=== PATIENT | male | born 1950 | race Caucasian/White ===

== ENCOUNTER 2021-05-02 12:28 | Observation (INO) ==
[2021-05-02] MEDS ORDERED: NS 1,000 ML IV 1,000 ML IV ONE (13:13)
[2021-05-02] MEDS ORDERED: NS 1,000 ML IV 1,000 ML ONE (13:14)
[2021-05-02 13:21] LABS: BASOPHILS % (AUTO) 0.2 % (0.2-1.0); EOSINOPHILS % (AUTO) 0.4 % (0.9-2.9); HEMATOCRIT 48.4 % (42.0-54.0); LYMPHOCYTES # (AUTO) 1.1 X10^3/uL (1.3-2.9); LYMPHOCYTES % (AUTO) 8.6 % (21.0-51.0); MEAN CORPUSCULAR HEMOGLOBIN 31.7 pg (27.0-34.0); MEAN CORPUSCULAR HGB CONC 35.1 g/dL (33.0-35.0); MEAN CORPUSCULAR VOLUME 90.5 fL (80.0-100.0); MEAN PLATELET VOLUME 8.2 fL (7.4-11.0); MONOCYTES # (AUTO) 0.5 x10^3/uL (0.3-0.8); MONOCYTES % (AUTO) 4.3 % (0.0-13.0); NEUTROPHILS # (AUTO) 10.6 x10^3/uL (2.2-4.8); NEUTROPHILS % (AUTO) 86.5 % (42.0-75.0); PLATELET COUNT 281 X10^3/uL (150.0-450.0); RED BLOOD COUNT 5.35 X10^6/uL (4.7-6.0); RED CELL DISTRIBUTION WIDTH 13.4 % (11.6-16.5); WHITE BLOOD COUNT 12.3 X10^3/uL (3.6-10.0)
--- NOTE | 2021-05-02 13:27 | DR.EXTPAIN ---
HPI Time seen Time Seen by Provider: 05/02/21 12:50 PCP Primary Care Physician: CLAUDIA HPI Comment HPI Comment: PATIENT IS 70YR OLD MALE IN ER WITH RECTAL BLEEDING THIS AM AND SYNCOPAL EPISODE WHILE IN THE TOILET. BP IS LOW IN ER. CURRENTLY ON CIPRO AND FLAGYL FOR DIVERTICULITIS. HAVE GENERALIZED HIVES THAT IS RESOLVING. NO INCREASING ABDOMINAL PAIN SLIGHT RECTAL PAIN DISCOMFORT. Complaint/Symptoms Chief Complaint Doctor Comments: RECTAL BLEEDING AND SYNCOPAL EPISODE. Chief Complaint:: PATIENT C/O RECTAL BLEEDING THIS MORNING ASSOICIATED WITH SYNCOPAL EPISODE WHILE ON THE TOLIET. PATIENT STATES HE HAS BEEN TAKING MEDICATION FOR A DIVERTICULITIS FLAIR UP. PATIENT ALSO IS NOTED TO BE BROKE OUT IN HIVES D/T THE MEDICATIONS COVID-19 Coronavirus risk:travel/contact w/high risk person: No Has patient experienced Coronavirus symptoms: No Nurses notes reviewed Nurses Notes Review: Yes Source History Provided: Patient Mode of arrival Mode of Arrival: Wheelchair Timing Onset of Chief Complaint: 05/02/21 Context History of: None Associated signs and symptoms Associated Signs and Symptoms: Pain, Abdominal Pain and Bleeding PMH PMH Past Medical History: Yes Past Medical History: Dyslipidemia and Hypertension Past Medical History Comment: DIVERTICULITIS, DEFECTIVE HEART VALVE (WITH REPAIR) Past Surgical History: Yes Surgical History: CABG/Valve Surgery and Ortho Surgery Past Surgical History Comment: BIATERAL SHOULDER Family History History of Family Medical Conditions: No Social History Does any household member use tobacco: No Alcohol Use: Rarely Do you use any recreational Drugs:: No Lives With: Family Lives Where: Home Travel Risk Coronavirus risk:travel/contact w/high risk person: No Has patient experienced Coronavirus symptoms: No Infectious screening In the last 2 months have you had wt loss of >10#?: NO Have you had fever, night sweats or hemotysis?: No Have you traveled outside the country in the last 6 months?: No Isolation: Standard ROS Review of Systems Constitutional: See HPI, Weakness and Fatigue; negative Fever Eyes: No Symptoms Reported and See HPI ENTM: No Symptoms Reported and See HPI; negative Nose Discharge and Nose Congestion Respiratoy: No Symptoms Reported and See HPI; negative Moist Cough, Short of Breath and Wheezing Cardiovascular: See HPI, Syncope and Other (BP LOW IN ER.); negative Chest Pain Gastrointestinal/Abdominal: No Symptoms Reported, See HPI and Abdominal Pain; negative Diarrhea and Vomiting Genitourinary: No Symptoms Reported, See HPI, Pain and Bleeding (RECTAL BLEEDING.) Neurological: See HPI and Weakness; negative Headache and Dizziness Musculoskeletal: No Symptoms Reported and See HPI; negative Back Pain and Chest wall Integumentary: See HPI, Rash and Other (GENERALIZED HIVES DUE TO MEDICATION.); negative Change in Color and Juandice Hematologic/Lymphatic: See HPI and Easy Bruising Endocrine: No Symptoms Reported; negative Increased Thirst and Increased Urine Psychiatric: No Symptoms Reported and See HPI All Other Systems: Reviewed and Negative PE Vital Signs Vitals: Temperature 98.2 F Pulse Rate 80 Respiratory Rate 22 Blood Pressure 112/80 O2 Sat by Pulse Oximetry 97 General Limitations: No Limitations General Appearance: Alert and In No Apparent Distress Head Head Exam: Normal Inspection Eyes Eye exam: Normal Appearance; negative Scleral Icterus and Conjunctival Injection ENT ENT Exam: Normal Exam, Normal Oropharynx, Normal External Ear Exam and TM's Normal Bilaterally Neck Neck Exam: Normal Inspection and Trachea Midline; negative Tenderness Chest Chest Inspection: Normal Inspection and Symmetric Chest Wall Rise; negative Tenderness Respiratory Respiratory Exam: Normal Lung Sounds Bilat; negative Accessory Muscle Use, Chest Wall Tenderness and Respiratory Distress Respiratory Exam: Bilateral: Clear to Auscultation Cardiovascular Cardiovascular Exam: Regular Rate, Normal Rhythm, Normal Heart Sounds and Systolic Murmur; negative Diastolic Murmur Abdominal Exam Abdominal Exam: Normal Inspection, Normal Bowel Sounds and Soft; negative Tenderness Extremities Extremities Exam: Normal Inspection and Normal Capillary Refill Back Back Exam: Normal Inspection; negative (R) CVA Tenderness and (L) CVA Tenderness Neurological Neurological Exam: Alert and Oriented X3; negative Motor Sensory Deficit Psychiatric Psychiatric Exam: Normal Affect and Normal Mood Skin Skin Exam: Rash (GENERALIZED HIVES THAT IS RESOLVING.) MDM Differential Diagnosis Differential Diagnosis: Other (SYNCOPAL EPISODE, HYPOTENSION, GI BLEEDING, GENERALIZED HIVES, DIVERTICULITIS.) COURSE Treatment Treatment: SEE ORDERS. NS 3OOML IV BOLUS. STILL BP LOW. NS 1L IV BOLUS. PROTONIX DRIP. SURGERY CONSULT DONE IN ER. DR. ROTH WILL ADMIT PATIENT TO HOSPITAL. Consultation Consultation Comments: PATIENT DISCUSSED WITH DR. ROTH. HE WILL ADMIT PATIENT. Education/Counseling Education/Counseling: Patient and Family Educated On: Diagnosis ROR Labs Reviewed Laboratory Results Reviewed?: Yes Result Diagrams: 05/04/21 06:16 05/04/21 06:16 Laboratory: 05/02/21 16:50 Urine,Clean Catch Urine Culture - Preliminary 05/02/21 18:09 Blood Blood Culture - Preliminary 05/02/21 18:00 Blood Blood Culture - Preliminary WBC 12.3 X10^3/uL (3.6-10.0) H 05/02/21 13:10 RBC 5.35 X10^6/uL (4.7-6.0) 05/02/21 13:10 Hgb 16.9 g/dL (13.5-18.0) 05/02/21 18:00 Hct 48.6 % (42.0-54.0) 05/02/21 18:00 MCV 90.5 fL (80.0-100.0) 05/02/21 13:10 MCH 31.7 pg (27.0-34.0) 05/02/21 13:10 MCHC 35.1 g/dL (33.0-35.0) H 05/02/21 13:10 RDW 13.4 % (11.6-16.5) 05/02/21 13:10 Plt Count 281 X10^3/uL (150.0-450.0) 05/02/21 13:10 MPV 8.2 fL (7.4-11.0) 05/02/21 13:10 Neut % (Auto) 86.5 % (42.0-75.0) H 05/02/21 13:10 Lymph % (Auto) 8.6 % (21.0-51.0) L 05/02/21 13:10 [place] % (Auto) 4.3 % (0.0-13.0) 05/02/21 13:10 Eos % (Auto) 0.4 % (0.9-2.9) L 05/02/21 13:10 Baso % (Auto) 0.2 % (0.2-1.0) 05/02/21 13:10 Neut # (Auto) 10.6 x10^3/uL (2.2-4.8) H 05/02/21 13:10 Lymph # (Auto) 1.1 X10^3/uL (1.3-2.9) L 05/02/21 13:10 [place] # (Auto) 0.5 x10^3/uL (0.3-0.8) 05/02/21 13:10 Eos # (Auto) 0.0 x10^3/uL (0.0-0.2) 05/02/21 13:10 Baso # (Auto) 0.0 X10^3/uL (0.0-0.1) 05/02/21 13:10 Absolute Nucleated RBC 0.4 /100WBC 05/02/21 13:10 PT 12.9 SECONDS (11.8-14.3) 05/02/21 13:10 INR Target Range - 05/02/21 13:10 INR 1.02 (0.8-1.3) 05/02/21 13:10 APTT 27.3 SECONDS (22.9-36.5) 05/02/21 13:10 PTT Comment - 05/02/21 13:10 Sodium 138 mmol/L (136-145) 05/02/21 13:10 Corrected Sodium 139 mmol/L (136-145) 05/02/21 13:10 Potassium 4.9 mmol/L (3.5-5.1) 05/02/21 13:10 Chloride 102 mmol/L (98-107) 05/02/21 13:10 Carbon Dioxide 26.2 mmol/L (21-32) 05/02/21 13:10 BUN 36 mg/dL (7-18) H 05/02/21 13:10 Creatinine 1.58 mg/dL (0.70-1.30) H 05/02/21 13:10 Est GFR (MDRD) Af Amer 56 (>60) L 05/02/21 13:10 Est GFR (MDRD) Non-Af 46 (>60) L 05/02/21 13:10 Glucose 123 mg/dL (65-99) H 05/02/21 13:10 Lactic Acid 1.8 mmol/L (0.4-2.0) 05/02/21 18:00 Calcium 8.8 mg/dL (8.5-10.1) 05/02/21 13:10 Corrected Calcium TNP 05/02/21 13:10 Total Bilirubin 0.50 mg/dL (0.2-1.0) 05/02/21 13:10 AST 19 Units/L (15-37) 05/02/21 13:10 ALT 30 Units/L (12-78) 05/02/21 13:10 Alkaline Phosphatase 95 Units/L (46-116) 05/02/21 13:10 Creatine Kinase 71 Units/L (39-308) 05/02/21 13:10 CK-MB (CK-2) 1.0 ng/mL (0-4.0) 05/02/21 13:10 CK/CKMB % Calc 1.4 % (<4) 05/02/21 13:10 Troponin I High Sens 53.0 ng/L (4.0-60.0) 05/02/21 13:10 Total Protein 6.8 g/dL (6.4-8.2) 05/02/21 13:10 Albumin 3.4 g/dL (3.4-5.0) 05/02/21 13:10 Globulin 3.4 g/dL (2.5-4.5) 05/02/21 13:10 Albumin/Globulin Ratio 1.0 Ratio (1.1-2.1) L 05/02/21 13:10 Amylase 62 Units/L (25-115) 05/02/21 13:10 Lipase 161 Units/L (73-393) 05/02/21 13:10 Specimen Type Clean catch urine 05/02/21 16:42 Urine Color Yellow (YELLOW) 05/02/21 16:42 Urine Appearance Hazy (CLEAR) 05/02/21 16:42 Urine pH 5.0 (5.0 - 8.0) 05/02/21 16:42 Ur Specific [place] 1.020 (1.000-1.030) 05/02/21 16:42 Urine Protein Negative (NEGATIVE) 05/02/21 16:42 Urine Glucose (UA) Negative (NEGATIVE) 05/02/21 16:42 Urine Ketones Negative (NEGATIVE) 05/02/21 16:42 Urine Occult Blood Negative (NEGATIVE) 05/02/21 16:42 Urine Nitrite Negative (NEGATIVE) 05/02/21 16:42 Urine Bilirubin Negative (NEGATIVE) 05/02/21 16:42 Urine Urobilinogen Normal (NORMAL) 05/02/21 16:42 Ur Leukocyte Esterase Negative (NEGATIVE) 05/02/21 16:42 SARS CoV-2 RNA Rapid ELEANOR Negative (NEGATIVE) 05/02/21 16:42 XRAY XRAY Interpreted by: Radiologist (REPORT NOTED AND DISCUSSED WITH PATIENT.) and Self EKG Rate: 71 [place]: Normal Rhythm: NSR Block: None Hypertrophy: None ST: Nonsp Opioid Opioid Risk Tool Age (Gerard box if 16-45): No History of Preadolescent Sexual Abuse: No Total: 0 Total Score Risk Category: Low Risk Copyright: Mojica predicting aberrant behaviors Diagnosis Discharge Problem: Acute GI bleeding, Diverticulitis, Acute hypotension Episode of syncope Qualifiers: Syncope type: unspecified Qualified Code(s): R55 - Syncope and collapse Instructions Instructions: Colonoscopy, Adult, Care After, [id number] Forms: Excuse From Work or School Precautions for COVID19 [facility] Social Distancing
[2021-05-02 13:32] LABS: ALANINE AMINOTRANSFERASE 30 Units/L (12-78); ALBUMIN 3.4 g/dL (3.4-5.0); ALKALINE PHOSPHATASE 95 Units/L (46-116); AMYLASE 62 Units/L (25-115); ASPARTATE AMINO TRANSFERASE 19 Units/L (15-37); BLOOD UREA NITROGEN 36 mg/dL (7-18); CALCIUM 8.8 mg/dL (8.5-10.1); CARBON DIOXIDE 26.2 mmol/L (21-32); CHLORIDE 102 mmol/L (98-107); COR NA(FOR HYPERGLY) 139 mmol/L (136-145); CREATININE 1.58 mg/dL (0.70-1.30); GLUCOSE 123 mg/dL (65-99); LIPASE 161 Units/L (73-393); POTASSIUM 4.9 mmol/L (3.5-5.1); SODIUM 138 mmol/L (136-145); TOTAL PROTEIN 6.8 g/dL (6.4-8.2); eGFR NON BLACK RACES 46 (>60)
[2021-05-02 13:44] LABS: INR 1.02 (0.8-1.3)
[2021-05-02 15:00] LABS: CKMB % 1.4 % (<4)
[2021-05-02] MEDS ORDERED: NS 100 ML IV 100 ML ONE (16:08)
[2021-05-02] MEDS ORDERED: PROTONIX INJ 40 MG VIAL ONE (16:08)
[2021-05-02] MEDS: PROTONIX INJ 40 MG VIAL 80 MG in NS 100 ML IV 80 ML IV SCH (16:17)
[2021-05-02 17:06] LABS: BILIRUBIN,URINE NEGATIVE (NEGATIVE); BLOOD/HEMOGLOBIN,URINE NEGATIVE (NEGATIVE); GLUCOSE, URINE NEGATIVE (NEGATIVE); KETONES,URINE NEGATIVE (NEGATIVE); LEUKOCYTE ESTERASE ,URINE NEGATIVE (NEGATIVE); NITRITES,URINE NEGATIVE (NEGATIVE); PROTEIN,URINE NEGATIVE (NEGATIVE); UROBILINOGEN,URINE NORMAL (NORMAL)
[2021-05-02 17:14] LABS: APPEARANCE,URINE HAZY (CLEAR); COLOR,URINE YELLOW (YELLOW)
--- NOTE | 2021-05-02 17:47 | CT ---
HISTORYC/O RECTAL BLEEDING THIS MORNING ASSOICIATED WITH SYNCOPAL EPISODE WHILE ON THE TOLIET. PATIENT STATES HE HAS BEEN TAKING MEDICATION FOR A DIVERTICULITIS FLAIR UP.STUDYABDOMEN/PELVIS W/O CONCOMPARISONCT abdomen and pelvis 01/07/2021TECHNIQUEMultiple CT axial images of the abdomen and pelvis were obtained without IV contrast. Coronal and sagittal images were reconstructed. Dose reduction techniques included Automated Exposure Control (AEC) and adjustment of mA and kV.FINDINGSThe edema which was present around 1 of the large diverticula in the sigmoid colon on the prior study is not identified today.There are diverticula in the colon. But there is no wall thickening or pericolonic edema to suggest acute diverticulitis. The appendix is normal in size with no inflammation around it. No evidence of appendicitis. The bowel is not dilated. There is no wall thickening in the bowel or edema around the bowel.Urinary bladder is not well distended but there is wall thickening and edema around it suggesting urinary cystitis. This is new since the prior study.The ureters are not dilated. The kidneys have normal size and shape. No abnormal calcification is present. There is no hydronephrosis or significant perirenal edema.The lung bases are clear. Heart size is normal. Calcified granuloma in the left lung base is associated with left hilar calcified lymph nodes and splenic granuloma from prior fungal/granulomatous infection.Atherosclerotic calcifications are present in the coronary arteries.Liver, gallbladder, adrenal glands, and pancreas are unremarkable. Slight increased density in the small bowel mesentery is a nonspecific mesenteritis. But the finding is unchanged from prior study.Degenerative changes are present in the spine. Compression fracture at L1 is stable.Median sternotomy wires are present.IMPRESSION1. Resolved diverticulitis2. Findings suggesting acute urinary cystitis3. Stable nonspecific mesenteritisElectronically signed by: Melchor Katz (May 02, 2021 17:45:47)
[2021-05-02] MEDS ORDERED: INVanz INJ 1 GRAM VIAL ONE (18:16)
[2021-05-02] MEDS ORDERED: NS 100 ML IV + SPIKE MINIBAG* 100 ML IV ONE (18:16)
[2021-05-02 18:17] LABS: HEMATOCRIT 48.6 % (42.0-54.0); HEMOGLOBIN 16.9 g/dL (13.5-18.0)
[2021-05-02] MEDS: INVanz INJ 1 GRAM VIAL 1 G in NS 100 ML IV + SPIKE MINIBAG* 100 ML IV SCH (18:25)
[2021-05-02] MEDS ORDERED: CITROMA ONE (20:34)
[2021-05-02] MEDS ORDERED: DULCOLAX TAB EC 5 MG PO ONE ×2 (20:34→20:58)
[2021-05-02] MEDS ORDERED: CITROMA PO ONE (20:58)
[2021-05-02 21:39] VITALS: BMI 27.4
[2021-05-03] MEDS: PROTONIX INJ 40 MG VIAL 80 MG in NS 100 ML IV 80 ML IV SCH ×3 (06:06→20:20)
[2021-05-03] MEDS ORDERED: D5 1/2 NS 1,000 ML 1,000 ML IV SCH (06:08)
[2021-05-03 06:13] LABS: BLOOD UREA NITROGEN 35 mg/dL (7-18); CALCIUM 9.1 mg/dL (8.5-10.1); CARBON DIOXIDE 21.8 mmol/L (21-32); CHLORIDE 101 mmol/L (98-107); COR NA(FOR HYPERGLY) 140 mmol/L (136-145); CREATININE 1.42 mg/dL (0.70-1.30); GLUCOSE 126 mg/dL (65-99); POTASSIUM 4.3 mmol/L (3.5-5.1); SODIUM 139 mmol/L (136-145); eGFR NON BLACK RACES 53 (>60)
[2021-05-03 06:15] LABS: BASOPHILS % (AUTO) 0.3 % (0.2-1.0); EOSINOPHILS # (AUTO) 0.1 x10^3/uL (0.0-0.2); EOSINOPHILS % (AUTO) 1.2 % (0.9-2.9); HEMATOCRIT 47.7 % (42.0-54.0); HEMOGLOBIN 16.8 g/dL (13.5-18.0); LYMPHOCYTES # (AUTO) 1.6 X10^3/uL (1.3-2.9); LYMPHOCYTES % (AUTO) 18.7 % (21.0-51.0); MEAN CORPUSCULAR HEMOGLOBIN 31.6 pg (27.0-34.0); MEAN CORPUSCULAR HGB CONC 35.1 g/dL (33.0-35.0); MEAN CORPUSCULAR VOLUME 89.9 fL (80.0-100.0); MEAN PLATELET VOLUME 8.3 fL (7.4-11.0); MONOCYTES # (AUTO) 0.5 x10^3/uL (0.3-0.8); MONOCYTES % (AUTO) 5.8 % (0.0-13.0); NEUTROPHILS # (AUTO) 6.2 x10^3/uL (2.2-4.8); PLATELET COUNT 262 X10^3/uL (150.0-450.0); RED CELL DISTRIBUTION WIDTH 13.5 % (11.6-16.5); WHITE BLOOD COUNT 8.4 X10^3/uL (3.6-10.0)
[2021-05-03] MEDS: HYDROCHLOROTHIAZIDE 12.5 MG CAP PO SCH (08:31)
[2021-05-03] MEDS: ZESTRIL TAB 20 MG PO SCH (08:31)
[2021-05-03] MEDS: INVanz INJ 1 GRAM VIAL 1 G in NS 100 ML IV + SPIKE MINIBAG* 100 ML IV SCH (08:51)
[2021-05-03] MEDS ORDERED: LOVENOX INJ 40 MG SYR SC SCH (09:00)
[2021-05-03 10:03] LABS: CKMB % 1.6 % (<4); CREATINE KINASE 62 Units/L (39-308); CREATINE KINASE MB < 1.0 ng/mL (0-4.0)
[2021-05-03] MEDS ORDERED: DIPRIVAN VIAL 20 ML ONE (12:44)
[2021-05-03] MEDS ORDERED: D5 LR 1,000 ML 1,000 ML IV ONE (12:48)
[2021-05-03] MEDS: D5 1/2 NS 1,000 ML 1,000 ML IV SCH ×2 (14:03→20:20)
--- NOTE | 2021-05-03 14:14 | DR.H&P ---
H&P - History & Physical for Day of: H&P Date: 05/02/21 - Chief Complaint Chief Complaint: Syncope, rectal bleed - History of Present Illness History of Present Illness: Patient is a 70 year old white male who is being admitted due to passing out while on the toilet and bloody BM. Patient reports he took his BP med as he usually does. Patient states later he went to the bathroom and while on the toilet he passed out. States he saw bright red blood in the toilet. Patient states he did not loose conciousness. Denies CP, diaphoresis, changes in bladder or appetite. Reports bright red blood in stool. Denies history of anemia or GI bleed. PMH Hypertension and CAD (history of CABG). States he does not take heart meds; states he only takes BP meds. States he does not take blood thinners. - Past Medical History Past Medical History: Coronary Artery Disease (History of CABG and valve repair), Dyslipidemia, Hypertension - Past Surgical History Surgical History: Ortho Surgery, Other - Family History Family Medical History: Hypertension - Social History Does patient currently use any type of tobacco product: No Have you used tobacco products in the last 12 months: No Type of Tobacco Use: None Does any household member use tobacco: No Alcohol Use: None Drug Use: None - Medications Home Medications: lidocaine Adverse Reaction (Verified 05/02/21 12:29) procaine [From Novocain] Adverse Reaction (Verified 05/02/21 12:29) Sulfa (Sulfonamide Antibiotics) [SULFA] Adverse Reaction (Verified 05/02/21 12:31) CONTINUE taking the following medications ciprofloxacin HCl 500 mg PO Q12H 05/02/21 [History] lisinopril-hydrochlorothiazide 1 tab PO DAILY 05/02/21 [History] metronidazole 500 mg PO TID 05/02/21 [History] tadalafil [Cialis] 20 mg PO DAILY PRN 05/02/21 [History] - Review of Systems Constitutional: See HPI Eyes: See HPI ENT: See HPI Respiratory: See HPI Cardiovascular: See HPI Gastrointestinal: See HPI Musculoskeletal: See HPI Skin: See HPI Neurological: See HPI - Physical Exam Vital Signs: Temperature 98.3 F Pulse Rate [Apical] 83 Pulse Rate 80 Respiratory Rate 18 Blood Pressure [Left Arm] 103/65 Blood Pressure 112/80 O2 Sat by Pulse Oximetry 94 Oriented: Normal, Time, Person, Place Eyes: Normal Ear: Normal Nose: Normal Throat: Normal Respiratory: Clear Throughout Cardiovascular: Normal : Normal Auscultation: Bowel Sounds: Normal Palpation: Normal Tenderness: Normal Skin: Normal Musculoskeletal: Normal Psychiatric: Normal Mood Description: Calm Affect: Normal Speech Pattern: Clear, Appropriate - Assessment/Plan (1) GI bleed Status: Acute Plan: Monitor hgb. Labs as ordered. GI consult; plan for colonoscopy. IV protonix. Repeat labs as ordered (2) Hypotension Status: Acute Plan: Monitor (3) Syncope Status: Acute (4) Hypertension Status: Chronic Plan: History of hypertension; currently hypotensive - Allergies Allergies/Adverse Reactions: Allergies Allergy/AdvReac Type Severity Reaction Status Date / Time lidocaine AdvReac Verified 05/02/21 12:29 procaine [From Novocain] AdvReac Verified 05/02/21 12:29 Sulfa (Sulfonamide AdvReac Verified 05/02/21 12:31 Antibiotics) [SULFA]
--- NOTE | 2021-05-03 19:54 | PCM.PROG ---
Progress Note - Subjective Subjective: Patient is a 70 year old male who was admitted due to syncope and rule out GI bleed. Patient has been hypotensive as well. BP meds on hold. Patient is not symptomatic at present for hypotension. Patient is to have a colonoscopy today with Dr. Donahue. No other questions or concerns. - Past Medical Family Social History Past Med/Fam/Surg Hx: No changes since H&P Allergies: Allergies lidocaine Adverse Reaction (Verified 05/02/21 12:29) procaine [From Novocain] Adverse Reaction (Verified 05/02/21 12:29) Sulfa (Sulfonamide Antibiotics) [SULFA] Adverse Reaction (Verified 05/02/21 12:31) - Review of Systems ROS: No change since H&P - Vital Signs and I&O's Vital Signs: Temperature 98.0 F Pulse Rate [Apical] 74 Pulse Rate 80 Respiratory Rate 20 Blood Pressure [Left Arm] 110/65 Blood Pressure 112/80 O2 Sat by Pulse Oximetry 96 Intake and Output: Intake & Output 04/30/21 05/01/21 05/02/21 05/03/21 23:59 23:59 23:59 23:59 Intake Total 406 / 406 1200 / 1200 Balance 406 / 406 1200 / 1200 - Physical Exam Oriented: Normal, Time, Person, Place Eyes: Normal Ear: Normal Nose: Normal Throat: Normal Respiratory: Normal Cardiovascular: Normal : Normal Auscultation: Bowel Sounds: Normal Palpation: Normal Tenderness: Normal Skin: Normal Musculoskeletal: Normal Psychiatric: Normal Mood Description: Calm Affect: Normal Speech Pattern: Clear, Appropriate - Laboratory and Diagnostics Result Diagrams: 05/03/21 05:48 05/03/21 05:25 Labs: 05/02/21 16:50 Urine,Clean Catch Urine Culture - Preliminary Laboratory WBC 8.4 X10^3/uL (3.6-10.0) 05/03/21 05:48 RBC 5.30 X10^6/uL (4.7-6.0) 05/03/21 05:48 Hgb 16.8 g/dL (13.5-18.0) 05/03/21 05:48 Hct 47.7 % (42.0-54.0) 05/03/21 05:48 MCV 89.9 fL (80.0-100.0) 05/03/21 05:48 MCH 31.6 pg (27.0-34.0) 05/03/21 05:48 MCHC 35.1 g/dL (33.0-35.0) H 05/03/21 05:48 RDW 13.5 % (11.6-16.5) 05/03/21 05:48 Plt Count 262 X10^3/uL (150.0-450.0) 05/03/21 05:48 MPV 8.3 fL (7.4-11.0) 05/03/21 05:48 Neut % (Auto) 74.0 % (42.0-75.0) 05/03/21 05:48 Lymph % (Auto) 18.7 % (21.0-51.0) L 05/03/21 05:48 [place] % (Auto) 5.8 % (0.0-13.0) 05/03/21 05:48 Eos % (Auto) 1.2 % (0.9-2.9) 05/03/21 05:48 Baso % (Auto) 0.3 % (0.2-1.0) 05/03/21 05:48 Neut # (Auto) 6.2 x10^3/uL (2.2-4.8) H 05/03/21 05:48 Lymph # (Auto) 1.6 X10^3/uL (1.3-2.9) 05/03/21 05:48 [place] # (Auto) 0.5 x10^3/uL (0.3-0.8) 05/03/21 05:48 Eos # (Auto) 0.1 x10^3/uL (0.0-0.2) 05/03/21 05:48 Baso # (Auto) 0.0 X10^3/uL (0.0-0.1) 05/03/21 05:48 Absolute Nucleated RBC 0.2 /100WBC 05/03/21 05:48 PT 12.9 SECONDS (11.8-14.3) 05/02/21 13:10 INR Target Range - 05/02/21 13:10 INR 1.02 (0.8-1.3) 05/02/21 13:10 APTT 27.3 SECONDS (22.9-36.5) 05/02/21 13:10 PTT Comment - 05/02/21 13:10 Sodium 139 mmol/L (136-145) 05/03/21 05:25 Corrected Sodium 140 mmol/L (136-145) 05/03/21 05:25 Potassium 4.3 mmol/L (3.5-5.1) 05/03/21 05:25 Chloride 101 mmol/L (98-107) 05/03/21 05:25 Carbon Dioxide 21.8 mmol/L (21-32) 05/03/21 05:25 BUN 35 mg/dL (7-18) H 05/03/21 05:25 Creatinine 1.42 mg/dL (0.70-1.30) H 05/03/21 05:25 Est GFR (MDRD) Af Amer > 60 (>60) 05/03/21 05:25 Est GFR (MDRD) Non-Af 53 (>60) L 05/03/21 05:25 Glucose 126 mg/dL (65-99) H 05/03/21 05:25 Lactic Acid 1.8 mmol/L (0.4-2.0) 05/02/21 18:00 Calcium 9.1 mg/dL (8.5-10.1) 05/03/21 05:25 Corrected Calcium TNP 05/02/21 13:10 Total Bilirubin 0.50 mg/dL (0.2-1.0) 05/02/21 13:10 AST 19 Units/L (15-37) 05/02/21 13:10 ALT 30 Units/L (12-78) 05/02/21 13:10 Alkaline Phosphatase 95 Units/L (46-116) 05/02/21 13:10 Creatine Kinase 62 Units/L (39-308) 05/03/21 09:20 CK-MB (CK-2) < 1.0 ng/mL (0-4.0) 05/03/21 09:20 CK/CKMB % Calc 1.6 % (<4) 05/03/21 09:20 Troponin I High Sens 41.8 ng/L (4.0-60.0) 05/03/21 09:20 Total Protein 6.8 g/dL (6.4-8.2) 05/02/21 13:10 Albumin 3.4 g/dL (3.4-5.0) 05/02/21 13:10 Globulin 3.4 g/dL (2.5-4.5) 05/02/21 13:10 Albumin/Globulin Ratio 1.0 Ratio (1.1-2.1) L 05/02/21 13:10 Amylase 62 Units/L (25-115) 05/02/21 13:10 Lipase 161 Units/L (73-393) 05/02/21 13:10 Specimen Type Clean catch urine 05/02/21 16:42 Urine Color Yellow (YELLOW) 05/02/21 16:42 Urine Appearance Hazy (CLEAR) 05/02/21 16:42 Urine pH 5.0 (5.0 - 8.0) 05/02/21 16:42 Ur Specific [place] 1.020 (1.000-1.030) 05/02/21 16:42 Urine Protein Negative (NEGATIVE) 05/02/21 16:42 Urine Glucose (UA) Negative (NEGATIVE) 05/02/21 16:42 Urine Ketones Negative (NEGATIVE) 05/02/21 16:42 Urine Occult Blood Negative (NEGATIVE) 05/02/21 16:42 Urine Nitrite Negative (NEGATIVE) 05/02/21 16:42 Urine Bilirubin Negative (NEGATIVE) 05/02/21 16:42 Urine Urobilinogen Normal (NORMAL) 05/02/21 16:42 Ur Leukocyte Esterase Negative (NEGATIVE) 05/02/21 16:42 Stool Description 20g brown soft 05/02/21 21:35 Stl Occult Blood (IFOB) Positive (NEGATIVE) A 05/02/21 21:35 SARS CoV-2 RNA Rapid ELEANOR Negative (NEGATIVE) 05/02/21 16:42 Tissue Pathology To follow 05/03/21 13:20 - Plan (1) GI bleed Status: Acute Plan: Monitor hgb. Labs as ordered. GI consult; plan for colonoscopy. IV protonix. Repeat labs as ordered (2) Hypotension Status: Acute Plan: Monitor (3) Syncope Status: Acute (4) Hypertension Status: Chronic Plan: History of hypertension; currently hypotensive (5) Hx of CABG Status: Chronic (6) Noncompliance Status: Acute Plan: Patient reports he does not take any blood thinners or medications for CAD. States he always experiences side effects from taking these medications therefore he refuses to take them.
[2021-05-04] MEDS: PROTONIX INJ 40 MG VIAL 80 MG in NS 100 ML IV 80 ML IV SCH ×3 (05:53→08:59)
[2021-05-04] MEDS: D5 1/2 NS 1,000 ML 1,000 ML IV SCH ×2 (05:55→07:45)
[2021-05-04 06:58] LABS: BASOPHILS % (AUTO) 0.2 % (0.2-1.0); EOSINOPHILS # (AUTO) 0.1 x10^3/uL (0.0-0.2); EOSINOPHILS % (AUTO) 1.5 % (0.9-2.9); HEMATOCRIT 39.3 % (42.0-54.0); HEMOGLOBIN 13.7 g/dL (13.5-18.0); LYMPHOCYTES # (AUTO) 1.4 X10^3/uL (1.3-2.9); LYMPHOCYTES % (AUTO) 22.6 % (21.0-51.0); MEAN CORPUSCULAR HEMOGLOBIN 31.4 pg (27.0-34.0); MEAN CORPUSCULAR HGB CONC 34.9 g/dL (33.0-35.0); MEAN CORPUSCULAR VOLUME 89.8 fL (80.0-100.0); MEAN PLATELET VOLUME 8.1 fL (7.4-11.0); MONOCYTES # (AUTO) 0.3 x10^3/uL (0.3-0.8); MONOCYTES % (AUTO) 5.4 % (0.0-13.0); NEUTROPHILS # (AUTO) 4.5 x10^3/uL (2.2-4.8); NEUTROPHILS % (AUTO) 70.3 % (42.0-75.0); PLATELET COUNT 200 X10^3/uL (150.0-450.0); RED BLOOD COUNT 4.38 X10^6/uL (4.7-6.0); WHITE BLOOD COUNT 6.4 X10^3/uL (3.6-10.0)
[2021-05-04 07:07] LABS: ALANINE AMINOTRANSFERASE 23 Units/L (12-78); ALBUMIN 2.7 g/dL (3.4-5.0); ALKALINE PHOSPHATASE 70 Units/L (46-116); ASPARTATE AMINO TRANSFERASE 16 Units/L (15-37); BLOOD UREA NITROGEN 27 mg/dL (7-18); CALCIUM 7.7 mg/dL (8.5-10.1); CARBON DIOXIDE 24.1 mmol/L (21-32); CHLORIDE 105 mmol/L (98-107); COR CA(FOR HYPOALB) 8.7 mg/dL (8.5-10.1); COR NA(FOR HYPERGLY) 138 mmol/L (136-145); CREATININE 0.97 mg/dL (0.70-1.30); GLUCOSE 112 mg/dL (65-99); MAGNESIUM 1.9 mg/dL (1.7-2.9); POTASSIUM 3.7 mmol/L (3.5-5.1); SODIUM 138 mmol/L (136-145); TOTAL PROTEIN 5.5 g/dL (6.4-8.2); eGFR NON BLACK RACES > 60 (>60)
[2021-05-04 08:01] VITALS: TEMP 98.3
[2021-05-04] MEDS ORDERED: ZESTRIL TAB 20 MG ONE (08:54)
[2021-05-04] MEDS: ZESTRIL TAB 20 MG PO SCH (08:58)
[2021-05-04] MEDS: HYDROCHLOROTHIAZIDE 12.5 MG CAP PO SCH (08:58)
[2021-05-04] MEDS: INVanz INJ 1 GRAM VIAL 1 G in NS 100 ML IV + SPIKE MINIBAG* 100 ML IV SCH (08:58)
--- NOTE | 2021-05-04 11:17 | DR.PROGNOT ---
Hospital Progress Notes - Progress Note for Day of: Progress Note Date: 05/04/21 - Chief Complaint Chief Complaint: feeling much better , tolerating diet well .no bleedeng . - Past Medical Family Social History Past Med/Fam/Surg Hx: No changes since H&P Allergies: Allergies lidocaine Adverse Reaction (Verified 05/02/21 12:29) procaine [From Novocain] Adverse Reaction (Verified 05/02/21 12:29) Sulfa (Sulfonamide Antibiotics) [SULFA] Adverse Reaction (Verified 05/02/21 12:31) - Review Of Systems ROS: No change since H&P - Vital Signs Vital Signs: Temperature 98.3 F Pulse Rate [Apical] 70 Pulse Rate 80 Respiratory Rate 20 Blood Pressure [Left Arm] 118/73 Blood Pressure 112/80 O2 Sat by Pulse Oximetry 97 - Physical Exam Oriented: Normal, Time, Person, Place Eyes: Normal Ear: Normal Nose: Normal Throat: Normal Respiratory: Normal Cardiovascular: Normal : Normal GI:Auscultation: Normal GI:Palpation: Normal GI: Tenderness: Normal Skin: Normal Musculoskeletal: Normal Psychiatric: Normal Mood Description: Calm Affect: Normal Speech Pattern: Clear, Appropriate - Laboratory and Diagnostics Result Diagrams: 05/04/21 06:16 05/04/21 06:16 Labs: 05/02/21 16:50 Urine,Clean Catch Urine Culture - Preliminary 05/02/21 18:09 Blood Blood Culture - Preliminary 05/02/21 18:00 Blood Blood Culture - Preliminary Laboratory WBC 6.4 X10^3/uL (3.6-10.0) 05/04/21 06:16 RBC 4.38 X10^6/uL (4.7-6.0) L 05/04/21 06:16 Hgb 13.7 g/dL (13.5-18.0) D 05/04/21 06:16 Hct 39.3 % (42.0-54.0) L 05/04/21 06:16 MCV 89.8 fL (80.0-100.0) 05/04/21 06:16 MCH 31.4 pg (27.0-34.0) 05/04/21 06:16 MCHC 34.9 g/dL (33.0-35.0) 05/04/21 06:16 RDW 13.0 % (11.6-16.5) 05/04/21 06:16 Plt Count 200 X10^3/uL (150.0-450.0) 05/04/21 06:16 MPV 8.1 fL (7.4-11.0) 05/04/21 06:16 Neut % (Auto) 70.3 % (42.0-75.0) 05/04/21 06:16 Lymph % (Auto) 22.6 % (21.0-51.0) 05/04/21 06:16 [place] % (Auto) 5.4 % (0.0-13.0) 05/04/21 06:16 Eos % (Auto) 1.5 % (0.9-2.9) 05/04/21 06:16 Baso % (Auto) 0.2 % (0.2-1.0) 05/04/21 06:16 Neut # (Auto) 4.5 x10^3/uL (2.2-4.8) 05/04/21 06:16 Lymph # (Auto) 1.4 X10^3/uL (1.3-2.9) 05/04/21 06:16 [place] # (Auto) 0.3 x10^3/uL (0.3-0.8) 05/04/21 06:16 Eos # (Auto) 0.1 x10^3/uL (0.0-0.2) 05/04/21 06:16 Baso # (Auto) 0.0 X10^3/uL (0.0-0.1) 05/04/21 06:16 Absolute Nucleated RBC 0.1 /100WBC 05/04/21 06:16 PT 12.9 SECONDS (11.8-14.3) 05/02/21 13:10 INR Target Range - 05/02/21 13:10 INR 1.02 (0.8-1.3) 05/02/21 13:10 APTT 27.3 SECONDS (22.9-36.5) 05/02/21 13:10 PTT Comment - 05/02/21 13:10 Sodium 138 mmol/L (136-145) 05/04/21 06:16 Corrected Sodium 138 mmol/L (136-145) 05/04/21 06:16 Potassium 3.7 mmol/L (3.5-5.1) 05/04/21 06:16 Chloride 105 mmol/L (98-107) 05/04/21 06:16 Carbon Dioxide 24.1 mmol/L (21-32) 05/04/21 06:16 BUN 27 mg/dL (7-18) H 05/04/21 06:16 Creatinine 0.97 mg/dL (0.70-1.30) 05/04/21 06:16 Est GFR (MDRD) Af Amer > 60 (>60) 05/04/21 06:16 Est GFR (MDRD) Non-Af > 60 (>60) 05/04/21 06:16 Glucose 112 mg/dL (65-99) H 05/04/21 06:16 Lactic Acid 1.8 mmol/L (0.4-2.0) 05/02/21 18:00 Calcium 7.7 mg/dL (8.5-10.1) L 05/04/21 06:16 Corrected Calcium 8.7 mg/dL (8.5-10.1) 05/04/21 06:16 Magnesium 1.9 mg/dL (1.7-2.9) 05/04/21 06:16 Total Bilirubin 0.60 mg/dL (0.2-1.0) 05/04/21 06:16 AST 16 Units/L (15-37) 05/04/21 06:16 ALT 23 Units/L (12-78) 05/04/21 06:16 Alkaline Phosphatase 70 Units/L (46-116) 05/04/21 06:16 Creatine Kinase 62 Units/L (39-308) 05/03/21 09:20 CK-MB (CK-2) < 1.0 ng/mL (0-4.0) 05/03/21 09:20 CK/CKMB % Calc 1.6 % (<4) 05/03/21 09:20 Troponin I High Sens 41.8 ng/L (4.0-60.0) 05/03/21 09:20 Total Protein 5.5 g/dL (6.4-8.2) L 05/04/21 06:16 Albumin 2.7 g/dL (3.4-5.0) L 05/04/21 06:16 Globulin 2.8 g/dL (2.5-4.5) 05/04/21 06:16 Albumin/Globulin Ratio 1.0 Ratio (1.1-2.1) L 05/04/21 06:16 Amylase 62 Units/L (25-115) 05/02/21 13:10 Lipase 161 Units/L (73-393) 05/02/21 13:10 Specimen Type Clean catch urine 05/02/21 16:42 Urine Color Yellow (YELLOW) 05/02/21 16:42 Urine Appearance Hazy (CLEAR) 05/02/21 16:42 Urine pH 5.0 (5.0 - 8.0) 05/02/21 16:42 Ur Specific [place] 1.020 (1.000-1.030) 05/02/21 16:42 Urine Protein Negative (NEGATIVE) 05/02/21 16:42 Urine Glucose (UA) Negative (NEGATIVE) 05/02/21 16:42 Urine Ketones Negative (NEGATIVE) 05/02/21 16:42 Urine Occult Blood Negative (NEGATIVE) 05/02/21 16:42 Urine Nitrite Negative (NEGATIVE) 05/02/21 16:42 Urine Bilirubin Negative (NEGATIVE) 05/02/21 16:42 Urine Urobilinogen Normal (NORMAL) 05/02/21 16:42 Ur Leukocyte Esterase Negative (NEGATIVE) 05/02/21 16:42 Stool Description 20g brown soft 05/02/21 21:35 Stl Occult Blood (IFOB) Positive (NEGATIVE) A 05/02/21 21:35 SARS CoV-2 RNA Rapid ELEANOR Negative (NEGATIVE) 05/02/21 16:42 Tissue Pathology To follow 05/03/21 13:20 - Assessment and Plan 1: subsided rectal bleeding . extensive diverticulosis .no active bleeding now. large sigmoid polyp . internal hemorrhoids . episodes of hypotention . 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
[2021-05-04 12:21] VITALS: BP 131/69; PULSE 69; O2SAT 95
--- NOTE | 2021-05-10 10:36 | W.DIS.FURT ---
Discharge Plan - Discharge Plan Hospital Course: Admit date 05/02/21 Discharge date 05/04/21 DOS 05/04/21 Admit diagnosis(1) GI bleed (2) Hypotension (3) Syncope (4) History of Hypertension 5 Colitis Discharge Diagnosis: Same Hospital course Patient is a 70 year old male who was admitted after a syncopal episode approximately 1 hour after taking BP meds and a bloody bm. Patient underwent colonoscopy with Dr. Donahue with no acute or obvious continued bleed. It appears GI bleed resolved itself. Patient was hypotensive upon arrival; BP meds were held. BP improved. Hgb remained stable. Patient was educated to follow up with PCP and GI outpatient. Hgb did drop to approximately 13 from 17 however gi bleed is resolved. Patient was discharged home on antibiotics for colitis. Discharge time >35 mins Disposition: 01 HOME, SELF-CARE Condition: Stable Health Concerns: Post Hospitalization: new medications and changes needed to prevent readmission or further decline. Pt educated and given instructions on all concerns. Care Plan Goals: Problem: Activity Intolerance Goal: Increased tolerance to activity Instructions: Follow provided instructions. Follow up with primary physician as directed. Contact primary care physician or report to the closest Emergency Room if condition worsens. Plan of Treatment: Continue with present treatment and follow up plan. Pt is to keep follow up appointment as instructed and take medications as ordered. Prescriptions: New ciprofloxacin HCl 250 mg Tablet 250 mg PO Q12H Qty: 14 RF: 0 Transmission Status: Received by [facility]. metronidazole 500 mg Tablet 500 mg PO Q8H 7 Days Qty: 21 RF: 0 Transmission Status: Received by [facility]. Continued lisinopril-hydrochlorothiazide 20-12.5 mg tablet 1 tab PO DAILY tadalafil [Cialis] 20 mg Tablet 20 mg PO DAILY PRN - Orders to Discharge Patient Discharge Orders: Discharge (Routine); Ordered 05/04/21 Ordered By: TONI ROTH - Follow ups/Referrals Follow ups/Referrals: RUI PAREDES [STAFF PHYSICIAN] - 05/17/21 1:00 pm JESSICA TAYLOR [Primary Care Provider] - 3 days - Instructions Instructions: Colonoscopy, Adult, Care After, [id number], Hypotension, [id number], Diverticulitis, [id number], Near-Syncope, [id number], How to Take Your Blood Pressure, [id number], Form - Blood Pressure Record Sheet, Syncope, [id number]
== END 2021-05-04 12:50 | disposition home or self-care (01) ==
LOC: ER 12:28 → MED/SURG 12:28
PROVIDERS: ADMIT Internal Medicine; ATTEND Internal Medicine